=== PATIENT | male | born 1935 | race Caucasian/White ===

== ENCOUNTER → 2016-12-08 | Outpatient (CLI) | payer MEDICARE, BC | END | disposition disaster alternative care site (69) | LOC: GKIC 11:19 | DX: C18.9 Malignant neoplasm of colon, unspecified (principal); C78.02 Secondary malignant neoplasm of left lung; C78.01 Secondary malignant neoplasm of right lung; C78.7 Secondary malignant neoplasm of liver and intrahepatic bile duct; C78.1 Secondary malignant neoplasm of mediastinum | CPT/HCPCS: A9552 ==

== ENCOUNTER → 2017-02-20 | Outpatient (CLI) | payer MEDICARE, BC | END | disposition disaster alternative care site (69) | LOC: GAMB 01:27 | DX: M79.662 Pain in left lower leg (principal); I74.9 Embolism and thrombosis of unspecified artery; M79.89 Other specified soft tissue disorders; Z92.21 Personal history of antineoplastic chemotherapy; Z85.038 Personal history of other malignant neoplasm of large intestine | CPT/HCPCS: A0425; A0429 ==